=== PATIENT | female | born 1995 | race American Indian/Alaskan Native ===

== ENCOUNTER 2016-07-09 22:06 | Emergency (ER) | payer SELFPAY ==
[2016-07-09 22:52] VITALS: BP 135/95
[2016-07-09 23:23] LABS: Basophils % (Auto) 0.4 % (0.0-1.8); Eosinophils % (Auto) 1.9 % (0.0-4.3); Hematocrit 38.1 % (30.3-42.9); Hemoglobin 12.2 gm/dl (10.1-14.3); Mean Corpuscular HGB Conc 32 % (30-34); Mean Corpuscular Volume 75 fl (79-97); Platelet Count 278 K/mm3 (140-440); Red Blood Count 5.09 M/mm3 (3.65-5.03)
[2016-07-09 23:27] LABS: Mean Corpuscular Hemoglobin 24 pg (28-32)
[2016-07-09 23:36] LABS: Alanine Aminotransferase 8 units/L (7-56); Albumin 4.2 g/dL (3.9-5); Albumin/Globulin Ratio 1.2 %; Alkaline Phosphatase 56 units/L (35-129); Anion Gap 21 mmol/L; Blood Urea Nitrogen 6 mg/dL (7-17); Calcium 8.9 mg/dL (8.4-10.2); Carbon Dioxide 18 mmol/L (22-30); Chloride 98.2 mmol/L (98-107); Glucose 84 mg/dL (65-100); Lipase 28 units/L (13-60); Potassium 3.7 mmol/L (3.6-5.0); Sodium 133 mmol/L (137-145); Total Protein 7.6 g/dL (6.3-8.2)
[2016-07-10 00:06] LABS: Bilirubin,Urine NEG (Negative); Blood,Urine NEG (Negative); Ketones,Urine 20 mg/dL (Negative); Leukocyte Esterase,Urine TR (Negative); Mucus,Urine 1+ /HPF; Nitrite,Urine NEG (Negative); Protein,Urine <15 mg/dL mg/dL (Negative); Urobilinogen,Urine < 2.0 mg/dL (<2.0)
--- NOTE | 2016-07-11 12:29 | ED Elopement Review ---
ED Pt Elopement review - Results review Lab results: Laboratory Tests 07/09/16 07/09/16 07/09/16 22:54 22:54 Unknown WBC 10.0 RBC 5.09 H Hgb 12.2 Hct 38.1 MCV 75 L MCH 24 L MCHC 32 RDW 14.0 Plt Count 278 Lymph % (Auto) 12.[address] [place] % (Auto) 9.4 H Eos % (Auto) 1.9 Baso % (Auto) 0.4 Lymph # 1.3 [facility] [place] # 0.9 H Eos # 0.2 Baso # 0.0 Seg Neutrophils % 75.8 H Seg Neutrophils # 7.6 Sodium 133 L Potassium 3.7 Chloride 98.2 Carbon Dioxide 18 L Anion Gap 21 BUN 6 L Creatinine 0.6 L Estimated GFR > 60 BUN/Creatinine Ratio 10.00 Glucose 84 Calcium 8.9 Total Bilirubin 0.40 AST 14 ALT 8 Alkaline Phosphatase 56 Troponin T < 0.010 Total Protein 7.6 Albumin 4.2 Albumin/Globulin Ratio 1.2 Lipase 28 Urine Color Yellow Urine Turbidity Slightly-cloudy Urine pH 5.0 Ur Specific [place] 1.020 Urine Protein <15 mg/dl Urine Glucose (UA) Neg Urine Ketones 20 Urine Blood Neg Urine Nitrite Neg Urine Bilirubin Neg Urine Urobilinogen < 2.0 Ur Leukocyte Esterase Tr Urine WBC (Auto) 2.0 Urine RBC (Auto) 2.0 U Epithel Cells (Auto) 18.0 H Urine Mucus 1+ Urine HCG, Qual Negative - Call Back decision Pt Call Back Decision: No action required
== END 2016-07-09 22:54 | disposition left against medical advice (07) ==
LOC: ED 22:06
DX: R07.9 Chest pain, unspecified (principal); R10.9 Unspecified abdominal pain; R51 Headache; Z53.21 Procedure and treatment not carried out due to patient leaving prior to being seen by health care provider
CPT/HCPCS: 36415; 80053; 81001; 81025; 83690; 84484; 85025; 93005; 93010

== ENCOUNTER 2017-03-15 10:48 | Emergency (ER) | payer SELFPAY ==
[2017-03-15 12:08] VITALS: BP 114/69
[2017-03-15 14:16] LABS: HCG Qualitative,Urine Negative (Negative)
[2017-03-15 14:25] LABS: Bilirubin,Urine Negative (Negative); Color,Urine Yellow (Yellow)
[2017-03-15 14:26] LABS: Bacteria,Urine 1+ /HPF (Negative); Blood,Urine Negative (Negative); Nitrite,Urine Negative (Negative); Protein,Urine <15 mg/dL mg/dL (Negative)
[2017-03-15 14:27] LABS: Mucus,Urine FEW /HPF
[2017-03-15 14:59] LABS: Basophils # (Auto) 0.1 K/mm3 (0.0-0.1); Basophils % (Auto) 0.5 % (0.0-1.8); Eosinophils % (Auto) 0.4 % (0.0-4.3); Lymphocytes # (Auto) 3.5 K/mm3 (1.2-5.4); Lymphocytes % (Auto) 25.6 % (13.4-35.0); Mean Corpuscular HGB Conc 31 % (30-34); Mean Corpuscular Volume 76 fl (79-97); Monocytes # (Auto) 0.8 K/mm3 (0.0-0.8); Platelet Count 337 K/mm3 (140-440); Red Blood Count 5.15 M/mm3 (3.65-5.03); Red Cell Distribution Width 13.7 % (13.2-15.2)
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
--- NOTE | 2017-03-15 14:59 | Cat Scan Report ---
FINAL REPORT PROCEDURE: CT HEAD/BRAIN WO CON TECHNIQUE: Computerized tomography of the head was performed without contrast material. HISTORY: s/p fall with syncope COMPARISON: None FINDINGS: Brain volume is age appropriate. There is no intra or extra-axial hemorrhage. There is no CT evident acute infarction. White matter is intact. There is no hydrocephalus. There is no fracture of the skull base or calvarium. The partially visualized paranasal sinuses, mastoid air cells and middle ears are clear. IMPRESSION: No CT evident intracranial abnormality.
[2017-03-15] MEDS ORDERED: MOTRIN PO ONE (15:00)
[2017-03-15] MEDS ORDERED: FLEXERIL PO ONE (15:00)
[2017-03-15 15:01] LABS: Mean Corpuscular Hemoglobin 23 pg (28-32)
--- NOTE | 2017-03-15 15:08 | Cat Scan Report ---
FINAL REPORT PROCEDURE: CT CERVICAL SPINE WO CON TECHNIQUE: Computerized tomography of the cervical spine was performed without contrast material. HISTORY: neck pain w/ syncope COMPARISON: None FINDINGS: There is no CT evident vertebral body or posterior element fracture. There is no subluxation. Intervertebral disc heights and facet joints are maintained. There no CT evident disc herniation, central canal or foraminal stenosis at any level. There is no paraspinal soft tissue mass.. IMPRESSION: Unremarkable examination. If symptoms persist consider MRI as an adjunct to this exam particularly to exclude subtle disc protrusion, ligamentous injury and annular tear.
[2017-03-15 15:18] LABS: BUN/Creatinine Ratio 10; Blood Urea Nitrogen 6 mg/dL (7-17); Calcium 9.1 mg/dL (8.4-10.2); Hemolysis Index 13
== END 2017-03-15 16:31 | disposition home or self-care (01) ==
LOC: ED 10:48
DX: R55 Syncope and collapse (principal); F17.200 Nicotine dependence, unspecified, uncomplicated
CPT/HCPCS: 36415; 70450; 72125; 80048; 81001; 81025; 85025; 85379; 93005; 93010; 99284

== ENCOUNTER 2021-06-11 08:29 | Emergency (ER) | payer SELFPAY ==
[2021-06-11 10:44] LABS: Bilirubin,Urine NEG (Negative); Blood,Urine SM (Negative); Color,Urine Yellow (Yellow); Mucus,Urine FEW /HPF
[2021-06-11 10:45] LABS: WBC,Urine > 182.0 /HPF (0.0-6.0)
[2021-06-11 10:46] LABS: HCG Qualitative,Urine Negative (Negative)
[2021-06-11] MEDS ORDERED: ACETAMINOPHEN 325 MG TAB PO ONE (11:18)
[2021-06-11] MEDS ORDERED: IBUPROFEN 400 MG TAB PO ONE (11:18)
--- NOTE | 2021-06-11 11:19 | Emergency Department Report ---
ED Female HPI - General Chief complaint: Vaginal Bleeding Stated complaint: VAGINAL CHECK Time Seen by Provider: 06/11/21 11:06 Source: patient, RN notes reviewed Mode of arrival: Ambulatory Limitations: No Limitations - History of Present Illness Initial comments: The patient is a 25-year-old female. She does not know she is . She presents to the ER today with a complaint of history of vaginal bleeding, while not supposed to be on her menstruation. She does not know exactly when her last normal menstruation was, but she believes that it was sometime in mid to late April. Patient denies headache, neck pain, chest pain, shortness of breath, vomiting, diaphoresis and all other symptoms, but does endorse some suprapubic discomfort, and she is not sure if she is having dysuria. The patient is sexually active with one partner, has intermittent condom use, and denies a history of STIs that she is aware of. The patient has not taken a home test. The patient has not taken pain medication at home for her physical discomfort. MD Complaint: other -: Gradual Location: suprapubic Severity: mild Quality: cramping Consistency: intermittent Improves with: none Worsens with: none - Related Data Sexually active: Yes Previous Rx's Medication Instructions Recorded Last Taken Type Ibuprofen [Motrin] 600 mg PO Q8H PRN #30 tablet 03/15/17 Unknown Rx Fluconazole [Diflucan TAB] 200 mg PO QDAY #1 tablet 12/12/20 Unknown Rx cephALEXin [Keflex] 500 mg PO BID 7 Days #14 cap 12/12/20 Unknown Rx metroNIDAZOLE [Flagyl] 500 mg PO Q12HR 7 Days #14 tab 12/12/20 Unknown Rx Allergies Allergy/AdvReac Type Severity Reaction Status Date / Time No Known Allergies Allergy Verified 03/15/17 12:03 ED Review of Systems ROS: Stated complaint: VAGINAL CHECK Other details as noted in HPI Comment: All other systems reviewed and negative Gastrointestinal: as per HPI (Suprapubic abdominal pain) Genitourinary: other (Possible vaginal bleeding, possible dysuria) ED Past Medical Hx - Social History Smoking Status: Current Every Day Smoker Substance Use Type: None - Medications Home Medications: Home Medications Medication Instructions Recorded Confirmed Last Taken Type Ibuprofen [Motrin] 600 mg PO Q8H PRN #30 tablet 03/15/17 Unknown Rx Fluconazole [Diflucan TAB] 200 mg PO QDAY #1 tablet 12/12/20 Unknown Rx cephALEXin [Keflex] 500 mg PO BID 7 Days #14 cap 12/12/20 Unknown Rx metroNIDAZOLE [Flagyl] 500 mg PO Q12HR 7 Days #14 tab 12/12/20 Unknown Rx ED Physical Exam - General Limitations: No Limitations, Other (Chaperoned by Hailey Ocampo) General appearance: alert, in no apparent distress - Head Head exam: Present: atraumatic, normocephalic - Eye Eye exam: Present: normal appearance, EOMI. Absent: nystagmus - ENT ENT exam: Present: normal exam, normal orophraynx, mucous membranes moist, normal external ear exam - Neck Neck exam: Present: normal inspection, full ROM. Absent: tenderness, mening ismus - Respiratory Respiratory exam: Present: normal lung sounds bilaterally. Absent: respiratory distress - Cardiovascular Cardiovascular Exam: Present: regular rate, normal rhythm, normal heart sounds. Absent: bradycardia, tachycardia, irregular rhythm, systolic murmur, diastolic murmur, rubs, gallop - GI/Abdominal GI/Abdominal exam: Present: soft. Absent: distended, tenderness, guarding, rebound, rigid, pulsatile mass - External exam: Present: normal external exam, other (Patient provides verbal consent for gynecologic examination). Absent: erythema, swelling, lesions, lacerations, ecchymosis Speculum exam: Present: normal speculum exam, vaginal discharge, other (Chaperoned by electrical drafter Hailey Ocampo). Absent: erythema, cervical discharge, vaginal bleeding, foreign body, tissue, laceration - Extremities Exam Extremities exam: Present: normal inspection, full ROM, other (2+ pulses noted in the bilateral upper and lower extremities. There is no palpable cord. negative Homans sign. Muscular compartments are soft. The pelvis is stable.). Absent: pedal edema, calf tenderness - Back Exam Back exam: Present: normal inspection, full ROM. Absent: tenderness, CVA tenderness (R), CVA tenderness (L), paraspinal tenderness, vertebral tenderness - Neurological Exam Neurological exam: Present: alert, oriented X3, normal gait, other (No facial droop. Tongue midline. Extraocular movements intact bilaterally. Facial sensation intact to light touch in V1, V2, V3 distribution bilaterally. 5 and a 5 strength in 4 extremities. Sensation intact to light touch in 4 extremities.). Absent: motor sensory deficit - Psychiatric Psychiatric exam: Present: normal affect, normal mood - Skin Skin exam: Present: warm, dry, intact, normal color. Absent: rash ED Course Vital Signs 06/11/21 09:15 Temperature 98.7 F Pulse Rate 83 Respiratory 18 Rate Blood Pressure 120/73 O2 Sat by Pulse 100 Oximetry ED Medical Decision Making - Lab Data Vital Signs 06/11/21 09:15 Temperature 98.7 F Pulse Rate 83 Respiratory 18 Rate Blood Pressure 120/73 O2 Sat by Pulse 100 Oximetry Lab Results 06/11/21 Range/Units 10:01 Urine Color Yellow (Yellow) Urine Turbidity Cloudy (Clear) Urine pH 7.0 (5.0-7.0) Ur Specific [place] 1.017 (1.003-1.030) Urine Protein 100 mg/dl (Negative) mg/dL Urine Glucose (UA) Neg (Negative) mg/dL Urine Ketones Neg (Negative) mg/dL Urine Blood Sm (Negative) Urine Nitrite Neg (Negative) Urine Bilirubin Neg (Negative) Urine Urobilinogen 4.0 (<2.0) mg/dL Ur Leukocyte Esterase Lg (Negative) Urine WBC (Auto) > 182.0 H (0.0-6.0) /HPF Urine RBC (Auto) 51.0 (0.0-6.0) /HPF U Epithel Cells (Auto) 7.0 (0-13.0) /HPF Ur Transition Epith Cell 4 /HPF Urine Mucus Few /HPF Urine HCG, Qual Negative (Negative) - Medical Decision Making Differential diagnosis, including but not limited to: Chlamydia, encounter for test, STI, high risk sexual behavior Assessment and plan: 25-year-old female, who is afebrile with reassuring vital signs, with no abdominal tenderness, rebound or guarding, benign gynecologic examination, presenting with negative test and pyuria without bacteriuria. Patient educated as to the nature of pyuria and the possibility of chlamydia. Patient's pain is treated, she is medicated empirically with ceftriaxone and azithromycin, she is advised to follow-up with a primary care doctor, recreation adviser, or health department for further evaluation and management. She does not appear to have an emergent medical condition present at this time Critical care attestation.: If time is entered above; I have spent that time in minutes in the direct care of this critically ill patient, excluding procedure time. ED Disposition Clinical Impression: Pyuria, Negative test Disposition: 01 HOME / SELF CARE / HOMELESS Is pt being admited?: No Does the pt Need Aspirin: No Condition: Good Additional Instructions: Patient may take [id number] Tylenol or ibuprofen as needed for physical pain. Cultures were sent today, and results will be available in the next week. Please have your primary care doctor or recreation adviser contact the medical records department to obtain culture results. Recommend follow-up with a primary care doctor or recreation adviser within the next 2 weeks. Always practice safe sex. Cultures were sent today, and results will be available next 3-5 days. Please have your primary care doctor call the medical records department to obtain your culture results. Take the antibiotic therapy as directed. I recommend outpatient testing for sexually transmitted diseases, including hepatitis, syphilis and HIV. I also recommend that you abstain from sexual activity until you have completed her antibiotic therapy, a physician states that it is safe for you to resume sexual activity, and any partners that you have been sexually active with have been tested/treated/evaluated for sexual transmitted diseases. Please return to the emergency room right away with new pain, worsened pain, migration of pain, projectile vomiting, change in mental status, confusion, inability tolerate liquid feeds, new, worsened or different symptoms not present on the initial emergency room evaluation Referrals: BRENDA DAVID MD [Primary Care Provider] - 3-5 Days [facility] [Outside] - 3-5 Days [facility] [Provider Group] - 3-5 Days [facility] [Provider Group] - 3-5 Days
[2021-06-11] MEDS ORDERED: AZITHROMYCIN 1 GM ORAL PWDR PACKET PO ONE (11:54)
[2021-06-11] MEDS ORDERED: LIDOCAINE-MPF (1%) 10 MG/1 ML VIAL 5 ML INFILTRATI ONE (11:54)
[2021-06-11 12:18] VITALS: BP 122/72
== END 2021-06-11 12:27 | disposition home or self-care (01) ==
LOC: ED 08:29
DX: Z32.02 Encounter for pregnancy test, result negative (principal); R82.81 Pyuria; F17.200 Nicotine dependence, unspecified, uncomplicated; Z79.899 Other long term (current) drug therapy
CPT/HCPCS: 81001; 81025; 87086; 87210; 87591; 99284; J0696; J3490